=== PATIENT | male | born 1990 | race African-American/Black ===

== ENCOUNTER 2020-10-19 14:21 | Emergency (ER) | payer SELFPAY ==
[~2020-10-19] VITALS: Ht 170.2 cm; Wt 75.0 kg
--- NOTE | 2020-10-19 14:50 | PHYS DOC ---
Past Medical History Past Medical History: No Pertinent History Past Surgical History: No Surgical History Alcohol Use: None General Adult EDM: Chief Complaint: SORE THROAT HPI: HPI: 22-year-old male with sore throat for a few days. His sore throat is a throbbing aching nonradiating pain which is mild to moderate. Worse with swallowing. Review of systems negative for drooling neck swelling difficulty breathing or airway compromise. All other review of systems negative. Heart Score: C/O Chest Pain: No Risk Factors: Risk Factors: DM, Current or recent (<one month) smoker, HTN, HLP, family history of CAD, obesity. Risk Scores: Score 0 - 3: 2.5% MACE over next 6 weeks - Discharge Home Score 4 - 6: 20.3% MACE over next 6 weeks - Admit for Clinical Observation Score 7 - 10: 72.7% MACE over next 6 weeks - Early Invasive Strategies Allergies: Allergies: Allergies Coded Allergies Type Severity Reaction Last Updated Verified No Known Drug Allergies 10/19/20 No Physical Exam: PE: Constitutional: Well developed, well nourished, no acute distress, non-toxic appearance. [] HENT: Normocephalic, atraumatic, bilateral external ears normal, oropharynx moist, patient's tonsils are swollen with mild erythema. They are not touching. Patent airway. Midline uvula. No signs of peritonsillar abscess, nose normal. [] Eyes: PERRLA, EOMI, conjunctiva normal, no discharge. [] Neck: Normal range of motion, no tenderness, supple, no stridor. [] Cardiovascular:Heart rate regular rhythm, no murmur [] Lungs & Thorax: Bilateral breath sounds clear to auscultation [] Abdomen: Bowel sounds normal, soft, no tenderness, no masses, no pulsatile masses. [] Skin: Warm, dry, no erythema, no rash. [] Back: No tenderness, no CVA tenderness. [] Extremities: No tenderness, no cyanosis, no clubbing, ROM intact, no edema. [] Neurologic: Alert and oriented X 3, normal motor function, normal sensory function, no focal deficits noted. [] Psychologic: Affect normal, judgement normal, mood normal. [] EKG: EKG: [] Radiology/Procedures: Radiology/Procedures: [] Course & Med Decision Making: Course & Med Decision Making Pertinent Labs and Imaging studies reviewed. (See chart for details) []strep throat. amox. Dragon Disclaimer: Dragon Disclaimer: This electronic medical record was generated, in whole or in part, using a voice recognition dictation system. Departure Departure Impression: Primary Impression: Strep throat Disposition: HOME / SELF CARE / HOMELESS Referrals: NON,STAFF (PCP) Patient Instructions: Strep Throat Scripts Amoxicillin (AMOXICILLIN) 500 Mg Capsule 1 CAP PO BID, #20 CAP Prov: MAGNUS GAO MD 10/19/20 MAGNUS GAO MD Oct 19, 2020 14:50
[2020-10-19] MEDS ORDERED: AMOX500C PO (14:53)
[2020-10-19 15:33] VITALS: BP 139/82
[2020-10-19] MEDS ORDERED: LORazepam 0.5 MG TABLET ONE ×2 (15:33→15:36)
== END 2020-10-19 15:33 | disposition home or self-care (01) ==
LOC: ER 14:21
DX: J02.0 Streptococcal pharyngitis (principal); B95.0 Streptococcus, group A, as the cause of diseases classified elsewhere
CPT/HCPCS: 87880; 99283